=== PATIENT | male | born 1975 | race Hispanic/Latino ===

== ENCOUNTER 2018-05-14 05:26 | Day surgery (SDC) | payer BC, SELFPAY ==
[2018-05-14] VITALS (10 sets, daily range): BP systolic 93–123; BP diastolic 58–81; PULSE 72–87; RESP 14–20; TEMP 36.1–36.6; O2SAT 96–100; BMI 30.3
[2018-05-14] MEDS: Cefazolin 2 GM in 0.9% Normal Saline 100 ML IV (07:24)
--- NOTE | 2018-05-14 07:30 | RAD_ITS ---
STUDY: X-RAY - LEFT ANKLE REASON FOR EXAM: ORIF after hardware removal. TECHNIQUE: 6 intraoperative view(s) of the ankle. COMPARISON: None. FINDINGS: There is removal of the 2 orthopedic screws in the distal tibia with placement of orthopedic plate and screws of the distal fibula with syndesmotic fixation. Electronically Signed: Sai Seals MD at 14:35 EDT Tel , Service support , RAD/Ankle 2 Views
--- NOTE | 2018-05-14 07:30 | RAD_ITS ---
STUDY: X-RAY - LEFT CALCANEUS REASON FOR EXAM: Joint fusion with bone marrow concentrate. TECHNIQUE: 14 intraoperative view(s) of the calcaneus were obtained. COMPARISON: None. FINDINGS: There are postoperative changes from subtalar fusion with 2 orthopedic screws transfixing the talus and calcaneus. Electronically Signed: Sai Seals MD at 14:37 EDT Tel , Service support , RAD/Calcale min 2 Views
[2018-05-14] MEDS: Calcium Chloride 1 GM/10 ML Syringe (08:00)
[2018-05-14] MEDS: Heparin 10,000 UNITS/10 ML Vial 10000 UNITS (08:00)
--- NOTE | 2018-05-14 13:45 | DCINST_ITS ---
Discharge Activity: May Not Drive, May not drive while taking narcotic pain medications., May Not Shower, Use Walker, Use Crutches Ice area for (Minutes): 20 - apply ice behind left knee 20 minutes of each hour while awake Weight Bearing Status: No weight bearing Keep extremity elevated above heart level: Operative Extremity Call your doctor if your incision/area has: Sudden Increased Bleeding Call your doctor if you observe: Fever of 101 or Higher, Shortness of breath, Dizziness, Chest pain, Increased palpitations (irregular heartbeat), Calf discomfort, Uncontrolled pain Cleanse incision/area with: Keep Dressing Clean & Dry Allergies/Adverse Reactions: Allergies adhesive tape Allergy (Verified 05/03/18 10:56) Itching Medications to take at Discharge Calcium Carbonate/Vitamin D3 [Calcium 600 + Vit D Tablet] 1 each PO DAILY 05/03/18 Acetaminophen 1,000 mg PO Q8 #30 tab 05/14/18 Oxycodone [Oxyir] 5 mg PO Q6H PRN PRN 7 Days #30 tab 05/14/18 The following prescriptions were given: Oxycodone [Oxyir] 5 mg PO Q6H PRN PRN 7 Days #30 tab PRN Reason: Pain Acetaminophen 1,000 mg PO Q8 #30 tab Primary Care Physician: Vamshi Mak MD [Primary Care Provider] - Test Results: Test results from this visit will be discussed in further detail at your follow- up appointment, if applicable. Please Follow Up With: Nel Colon DPM - Please follow up at your previously scheduled post operative appointment next week. Proposed Discharge Date: 05/14/18
--- NOTE | 2018-05-14 13:45 | RAD_ITS ---
STUDY: X-RAY - LEFT TIBIA AND FIBULA REASON FOR EXAM: Postop, bone marrow concentrate harvest. TECHNIQUE: 2 view(s) of the tibia and fibula were obtained. COMPARISON: None. FINDINGS: There is an orthopedic plate and screws transfixing the distal fibula with a syndesmotic screw. There is a harvest site in the proximal tibia. There is an overlying cast. RAD/Tibia & Fibula 2 Views IMPRESSION: Postoperative changes. Electronically Signed: Sai Seals MD at 14:57 EDT Tel , Service support ,
--- NOTE | 2018-05-14 13:45 | RAD_ITS ---
STUDY: X-RAY - LEFT CALCANEUS REASON FOR EXAM: Postop subtalar joint fusion, fibular osteotomy. TECHNIQUE: 2 view(s) of the calcaneus were obtained. COMPARISON: None. FINDINGS: There are 2 orthopedic screws transfixing a subtalar fusion. There is an overlying cast. RAD/Calcaneus min 2 Views IMPRESSION: Postoperative changes. Electronically Signed: Sai Seals MD at 15:10 EDT Tel , Service support ,
--- NOTE | 2018-05-14 13:45 | RAD_ITS ---
STUDY: X-RAY - LEFT FOOT CLINICAL: Postop subtalar fusion and fibular osteotomy. TECHNIQUE: 2 view(s) of the foot. COMPARISON: None. FINDINGS: There are 2 orthopedic screws transfixing a fusion of the subtalar articulation. Normal visualized talonavicular, calcaneocuboid, tarsal and tarsometatarsal articulations. Normal metatarsi. Normal metatarsophalangeal joint of the great toe. Normal tibial and fibular sesamoid bones. Normal interphalangeal joint of the great toe. Normal phalanges of the great toe. Normal second through fifth metatarsophalangeal joints. Normal interphalangeal joints and phalanges of the lesser toes. There is an overlying cast. RAD/Foot 2 Views IMPRESSION: Postoperative changes. Electronically Signed: Sai Seals MD at 15:09 EDT Tel , Service support ,
--- NOTE | 2018-05-14 13:45 | RAD_ITS ---
STUDY: X-RAY - LEFT ANKLE REASON FOR EXAM: Postop fibular osteotomy for malunion and subtalar joint fusion. TECHNIQUE: 3 view(s) of the ankle. COMPARISON: None. FINDINGS: There is orthopedic plate and screws transfixing the distal fibula with a syndesmotic screw. Normal tibiotalar articulation and ankle mortise. There are 2 orthopedic screws transfixing a subtalar joint fusion. There is an overlying cast. RAD/Ankle min 3 Views IMPRESSION: Postoperative changes. Electronically Signed: Sai Seals MD at 14:49 EDT Tel , Service support ,
--- NOTE | 2018-05-14 13:49 | OP.PCM_ITS ---
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 Patient presented with his w yifan. States in December of 2016 he fell from a ladder and sustained a Left ankle fracture. [place] and his care was by another provider in that state. He underwent ORIF of the left medial malleolus. After reviewing his initial radiographs on his 's phone, and his medical records I performed repeat films and then sent him for a CT scan. HE appears to have had a SAD Type 2 fracture that was intraarticular from the medial malleolus. Patient's major complaints were that the medial malleolar screws were painful, he was significantly tender to palpation to his lateral malleolus, and had pain in his subtalar joint on uneven surfaces. He did not complain of pain with ankle ROM or activities such as ascending or descending stairs. Patient does have a hx of Vitamin D deficiency so this was also tested and will require continued supplementation. I did discuss with patient and his the surgical plan after reviewing the CT scan. I did ask for a re-read by the radiologist specifically seeking information on the malunited distal fibula and possible nonunion of the medial malleolus. We discussed that he may still have post traumatic arthritic pain after surgery, he may have pain in his tibiotalar joint or reduced ROM. We may need to consider arthrodesis of the ankle at some point in the future, however, at this point in time his pain is limited to his STJ and malleoli. To aid in healing his procedures we will also obtain BMAC from his Left proximal tibia. All risks, complications, and alternatives were discussed with the patient, and the patient signed an informed consent. No guarantees were given. Procedure: On 05/14/2018, Wes Mcrae was visually and verbally identified in the preoperative holding area. The consent form was again reviewed with the patient, as were all risks, complications, and alternatives and the patient wished to proceed with the proposed surgery. The left lower extremity was marked as the correct operative extremity. The patient was brought to the operating room and placed on the operating room table in the lazy lateral postion After induction by anesthesia, a surgical time out was performed and all present were in agreement. a pneumatic thigh tourniquet was then placed. At this time the left lower lower extremity was prepped and draped in the usual sterile fashion. The left tibial tuberosity was identified and then just distal and medial to it I made a stab incision using a #15 blade. I then procured approximately 60 cc of bone marrow aspiration which was then concentrated using the ISTO machine. The incision was then closed with 3.0 prolene. The left lower leg was then elevated and after exsanguination with an esmarch the tourniquet was inflated to 300 mmHg. At this time attention was turned to the left medial malleolus. Using a fresh #15 blade a curvilinear incision was made over the medial malleolus at the site of the screw fixation. Dissection was carried deep until the screw were identified. Ronguers were used to remove bone ingrowth from the screw head. The screws were then removed in total and without incident from the medial malleolus. The incision and screws holes were flushed with normal sterile saline and a curette was used to freshen the screws holes. Attention was then turned to the lateral ankle. Using a #15 blade a curvilinear incision was made from the proximal to the fracture to the distal tip of the fibula. With plans to extend to the base of the 4th metatarsal to allow for access to the subtalar joint. The incision was bluntly carried deep through the subcutaneous tissues with careful attention paid to all bleeders, which were clamped and tied or bovied as necessary. All vital neurovascular structures were retracted. The peroneal tendons were retracted. The distal posterior fibula was noted to be malformed with significant prominent areas. These were removed with a ronguer and smoothed with a rasp to emulate the natural curvature of the distal posterior fibula. Bone wax was applied and peroneal tendons were noted to glide easily and maintain position. The fracture of the distal fibula was easily identified and noted to be inco mplete with malrotation of the distal end. Using osteotomes and a saw blade an osteotomy was made. I was able to distract and rotate the distal fragment to obtained an improved alignment and fibular length. The osteotomy site was distracted and I used a k wire to fenestrate the bone to enhance bone healing. I then again distracted, rotated and reduced the fibula to a more anatomic alignment. This was held with a temporary k wire. As the initial fracture was an SAD 2 fracture, indicating a transverse fracture of the distal fibula, I did not place a lag screw. The distal fragment would not allow for, nor would the angulation of the fracture. The bone was not significantly soft and did bleed reasonable well. A combination of BMAC, Mcdonald Vitoss, Cancellous chips and peripheral blood was combined on the back table and a small amount of this was packed into the osteotomy site. I then placed A Mcdonald Variax plate with a combination of locking and nonlocking screws to obtain optimal contour of the plate. Plate and screw length and position was confirmed on intraoperative fluoroscopy. Good fixation was noted. Stress views of the left ankle were then obtained via the cotton hook test and external rotation test. Syndesmotic gapping was noted, with mild increase in the medial clear space. A malleolar reduction clamp was then placed and a 3.5 transyndesmotic screw was drilled, measured and was placed through the plate parallel to the tibiotalar joint and across the tibiofibular joint from the lateral fibula to the medial tibia. good fixation was noted and the malleolar reduction clamp was removed. Stress views were repeated with no syndesmotic gapping noted and no increase of the medial clear space noted. Attention was then directed to the lateral hindfoot. Using a fresh #15 blade the incision was extended to the base of the 4th metatarsal.The incision was bluntly carried deep through the subcutaneous tissues with careful attention paid to all bleeders, which were clamped and tied or bovied as necessary. All vital neurovascular structures were retracted. The peroneal tendons were retracted. THe EDB muscle belly was identified and retracted distally. The subtalar joint was identified and distracted. Using a combination of hansel, curette, ronguer and osteotomes the cartilage of the subtalar was removed until bleeding subchondral bone was seen. The joint was prepared for arthrodesis and fenestrated with a 2.0 drill bit. With adequate resection obtained of the subtalar joint surfaces I reduced and positioned the joint so as not to be in varus. Stab incisions were made at the plantar posterior heel with a #15 blade and guidewires for Mcdonald cannulated screws were placed nearly parallel to each other from posterior plantar calcaneus to the anterior dorsal talar neck. Length and positioning of the guidewires was confirmed in the lateral, AP, calcaneal axial views. Positioning of the subtalar joint was also confirmed on these views with care taken to align the 2nd ray of the foot to the tibial crest and maintain a plantigrade foot. When satisfied with positioning I then placed a cannulated screw across the STJ. I did not fully tighten the first screw. I then packed the remaining BMAC, Vitoss, cancellous bone chips and peripheral blood mixture into and across the subtalar joint in an gapping. I then placed the second screw. Both screws were tightened and good fixation was noted. Guidewires were removed. I did pack remaining BMAC/bone chips/Vitoss mixture into the holes in the medial malleolus from the previous screws. gentle flush with normal sterile saline was then done with care taken to not wash away any of the bone healing mixture. Closure was then initiated. 2.0 vicryl was used for the deep tissues, 3.0 vicryl for subcutaneous tissue and 3.0 prolene for skin. Betadine soaked adaptic and dry sterile dressings were applied to the incisions. A multi layer compression dressing was applied to aid in reduction of edema and pain, a well padded posterior splint was then applied. Capillary refill was WNL after dressings. The BMA harvest site was covered with an optsite dressing. Total tourniquet time was 240 minutes, Tourniquet was inflated for an initial period of 120 minutes before deflation with immediate capillary refill noted to all digits upon deflation. After a period of no less than 30 minutes, the tourniquet was reinflated for an additional 120 minutes which again, upon deflation immediate capillary refill was noted to all digits. Intra operative fluoroscopy was utilized throughout the case, > 1 hour, to aid in visualization and confirmation of reduction osteotomy and arthrodesis sites as well as screw and plate fixations. Interpretation of the images was vital to my decision making process. The patient tolerated the procedure and anesthesia well. The patient was then transported to the postanesthesia care unit by a member of the anesthesia team and myself with all vital signs stable and neurovascular status of the left lower extremity equal to pre-operative levels. At the end of the case all sponge, needle and instrument counts were found to be correct. Grafts/Implants Used: Shani plate and screws, Mcdonald Vitoss; cancellous chips - Complications none - Admit VTE Documentation VTE Present on Admission: No VTE Mechan Device Prophylaxis: SCD's, Knee High DONNA Hose VTE Pharm Prophylaxis ordered?: Yes
== END 2018-05-14 17:18 | disposition home or self-care (01) ==
LOC: SDC 05:26 → AC 05:28
PROVIDERS: Family Provider Family Medicine; PCP Family Medicine; Referring Provider Podiatrist Foot & Ankle Surgery; Visit Provider Podiatrist Foot & Ankle Surgery
PROC: (CPT 20680; principal; 2018-05-14 07:10)
DX: S82.42 Transverse fracture of shaft of fibula (principal); S82.54XK Nondisplaced fracture of medial malleolus of right tibia, subsequent encounter for closed fracture with nonunion; T84.84XA Pain due to internal orthopedic prosthetic devices, implants and grafts, initial encounter; M19.172 Post-traumatic osteoarthritis, left ankle and foot; W11.XXXD Fall on and from ladder, subsequent encounter; M85.872 Other specified disorders of bone density and structure, left ankle and foot; I89.8 Other specified noninfective disorders of lymphatic vessels and lymph nodes; R60.0 Localized edema; E55.9 Vitamin D deficiency, unspecified; Z79.899 Other long term (current) drug therapy
CPT/HCPCS: 01480; 20680; 27726; 28725; 38232; 64450; 73590; 73600; 73610; 73620; 73650; 76000; C1713; J7120; J2405